=== PATIENT | female | born 1975 | race Two or more races ===

== ENCOUNTER 2025-01-12 19:55 | Emergency (ER) | payer MEDICAID, SELFPAY ==
[2025-01-12 19:58] VITALS: BMI 31.8
[2025-01-12 20:09] VITALS: BP 154/85; PULSE 92; RESP 18; TEMP 37.6; O2SAT 99
--- NOTE | 2025-01-12 21:04 | PD.EDURI ---
Upper Respiratory Inf. RME/HPI General Chief Complaint: Dental/Oral/Throat Stated Complaint: SORE THROAT, R EAR PAIN AND FEVER Time Seen by Provider: 01/12/25 20:29 Arrival date/time: 01/12/25 19:55 49F with history of DM presents to ED with 1 day of sore throat, cough, and fevers/chills. Some ear pain. Limitations: no limitations Related Data Home Medications ?Medication ?Instructions ?Recorded ?Confirmed atorvastatin 10 mg tablet 10 mg PO QPM 11/08/22 11/08/22 empagliflozin 25 mg tablet 25 mg PO QDAY 11/08/22 11/08/22 (Jardiance) metformin 1,000 mg tablet 1,000 mg PO BID 11/08/22 11/08/22 sitagliptin phosphate 100 mg 100 mg PO QDAY 11/08/22 11/08/22 tablet (Januvia) Allergies Allergy/AdvReac Type Severity Reaction Status Date / Time No Known Allergies Allergy Verified 01/12/25 20:02 Review of Systems Review of Systems Systems Reviewed: All systems reviewed, normal except as documented Constitutional Constitutional: Reports system reviewed and no additional complaints, except as documented, Reports as per HPI, Reports chills, Reports fever(s) and Denies headache(s) ENT Ears, Nose, Mouth, and Throat: Reports as per HPI, Denies disequilibrium, Reports otalgia, Denies headache(s) and Reports sore throat Cardiovascular Cardiovascular: Reports system reviewed and no additional complaints, except as documented, Denies chest pain and Denies dyspnea Respiratory Respiratory: Reports system reviewed and no additional complaints, except as documented, Denies cough and Denies dyspnea Gastrointestinal Gastrointestinal: Reports system reviewed and no additional complaints, except as documented, Denies abdominal pain, Denies nausea and Denies vomiting Neurologic Neurologic: Reports system reviewed and no additional complaints, except as documented, Denies confusion, Denies disequilibrium and Denies headache(s) Psychiatric Psychiatric: Denies confusion Past Medical History Past Medical History NEUROLOGIC: Negative Neurological Disorders or Seizures CARDIAC: Positive Cardiac Disorders and Hypercholesterolemia; Negative Congestive Heart Failure RESPIRATORY: Negative Chronic Obstructive Pulmonary Disease (COPD) GASTROINTESTINAL: Positive Gastrointestinal Disorders (Positive stool occult) and Obesity GENITOURINARY: Negative Genitourinary Disorders or Renal Disease REPRODUCTIVE: Positive Previous Pregnancies MUSCULOSKELETAL: Negative Musculoskeletal Disorders ENDOCRINE: Positive Endocrine Disorders and Diabetes Mellitus Type 2; Negative Diabetes Mellitus Type 1 HEMATOLOGIC: Negative Blood Disorders OTHER HISTORY: Negative Hospitalization, Falls, Blood Transfusions, Anesthesia Reactions or Cancer Surgical History SURGICAL: Positive Tubal Ligation Social History SMOKING STATUS: Never smoker ED Exam General Limitations: Present no limitations General appearance: Present alert, in no apparent distress and anxious Head Head exam: Present atraumatic Eye Eye exam: Present normal appearance, PERRL and EOMI ENT ENT exam: Present mucous membranes moist Expanded ENT Exam Throat exam: Present tonsillar erythema; Absent tonsillomegaly, tonsillar exudate, R peritonsillar mass, L peritonsillar mass or muffled voice Neck Neck exam: Present normal inspection, full ROM and trachea midline Chest Chest inspection: Present normal inspection and symmetric chest wall rise Respiratory Respiratory exam: Present normal lung sounds bilaterally Cardiovascular Cardiovascular exam: Present regular rate, normal rhythm and normal heart sounds Abdominal Exam Abdominal exam: Present soft and normal bowel sounds Extremities Exam Extremities exam: Present normal inspection and full ROM Back Exam Back exam: Present normal inspection and full ROM Neurological Exam Neurological exam: Present alert, oriented X3 and CN II-XII intact Psychiatric Psychiatric exam: Present normal affect and normal mood Skin Skin exam: Present warm, dry, intact and normal color Course Quality Measures none Orders Category Date Time Status Bedside COVID-19 Antigen Test NOW Care 01/12/25 20:05 Active Bedside Influenza A&B Antigen Test NOW Care 01/12/25 20:05 Completed Strep A Rapid Stat Lab 01/12/25 20:45 Completed Vital Signs Vital signs: Vital Signs Temperature 99.6 F 01/12/25 20:09 Pulse Rate 92 01/12/25 20:09 Respiratory Rate 18 01/12/25 20:09 Blood Pressure 154/85 H 01/12/25 20:09 Pulse Oximetry (%) 99 01/12/25 20:09 Oxygen Delivery Method Room Air 01/12/25 20:09 O2 at 99% on RA and WNLs Upper Respiratory Infection MDM Narrative MDM Narrative:: 49F with history of DM presents to ED with 1 day of sore throat, cough, and fevers/chills. Some ear pain. Physical exam reveals bilateral cerumen impaction. Red, but otherwise clear orophyarnx. Patient is afebrile, alert, but anxious. Speech normal. Normal WOB. Swabs neg. Likely viral URI. Patient data External records reviewed:: [facility] previous records Clinical information provided by:: patient Social determinants that could affect healthcare access:: none Patient has the following chronic illnesses:: DM How is presenting disease/condition affected by chronic disease/condition?: exacerbated by Evaluation data The following diagnostics were reviewed and interpreted by me:: lab results Lab and/or radiology exams considered but not ordered:: ordered Interpretation Summary: above Medications / Prescriptions Medications or Prescriptions considered but not ordered:: not ordered Medication administrations:: n/a Consultations Consultation(s) initiated? (list below): No Diagnosis Upper Respiratory Differential Diagnosis: upper respiratory infection, croup, otitis media, sinusitis, viral infection, bronchitis, influenza and pharyngitis Most likely diagnosis given after review of the tests above:: URI Admission Indicated Admission indicated?: not indicated Admission Request Was there a request for admission?: No Disposition Plan Disposition Plan: Discharge Discharge Attestation Discharge Attestation: The patient and all family members were given an opportunity to ask questions and understood the discharge instructions. Discharge instructions specifically effects, indications for sooner follow up or return to the emergency department, and the expected course of current diagnosis. Patient condition: Stable Discharge Plan Plan Patient Disposition: HOME (Self Care) Discharge Disposition comment: Stable Prescriptions/Referrals Prescriptions/Med Rec: No Action atorvastatin 10 mg Tablet 10 mg PO QPM metformin 1,000 mg Tablet 1,000 mg PO BID Januvia 100 mg Tablet 100 mg PO QDAY Jardiance 25 mg Tablet 25 mg PO QDAY Referrals: No Primary/Family,Physician [Primary Care Provider] - In 1 week Problem List Clinical Impression: URI (upper respiratory infection) Patient/Caregiver Discharge Instructions Education Materials: ED URI, Viral, No Abx (Adult) Additional Instructions: Please follow-up with PCP within 24-48 hours and return immediately if symptoms worsen. Ibuprofen/Tylenol can be used simultaneously for greater fever/pain control. Benadryl is good for cough, congestion, and sleep. Print Language: Slovenian Stand Alone Forms: Patient Portal Info Letter PA/TREASURY MANAGER Supervising Physician PA/TREASURY MANAGER Supervising Physician: Dr. Strange
[2025-01-12 22:34] LABS: Strep A Rapid Negative (Negative)
[2025-01-12 22:45] VITALS: RESP 12
== END 2025-01-12 22:46 | disposition home or self-care (01) ==
PROVIDERS: Physician Assistant; Emergency Provider Emergency Medicine
DX: J06.9 Acute upper respiratory infection, unspecified (principal)
CPT/HCPCS: 87400; 87651; 87811; 99283

== ENCOUNTER 2025-01-14 02:07 | Emergency (ER) | payer MEDICAID, SELFPAY ==
[2025-01-14 02:08] VITALS: BMI 31.8
[2025-01-14 02:22] VITALS: BP 132/82; PULSE 111; RESP 19; TEMP 37.1; O2SAT 97
[2025-01-14] MEDS: AMOXICILLIN/POT CLAV 875 TABLET 1 TAB PO (02:40)
[2025-01-14] MEDS: KETOROLAC INJ 60 MG/2 ML VIAL IM (02:43)
--- NOTE | 2025-01-14 02:58 | EDNOTE_ITS ---
ED Anxiety RME/HPI General Chief Complaint: Dental/Oral/Throat Stated Complaint: SORE THROAT X 3DAYS Time Seen by Provider: 01/14/25 02:30 Arrival date/time: 01/14/25 02:07 49F with history Limitations: no limitations Related Data Home Medications ?Medication ?Instructions ?Recorded ?Confirmed atorvastatin 10 mg tablet 10 mg PO QPM 11/08/22 empagliflozin 25 mg tablet 25 mg PO QDAY 11/08/2208/01 (Jardiance) metformin 1,000 mg tablet 1,000 mg PO BID 11/08/2208/01 sitagliptin phosphate 100 mg 100 mg PO QDAY 11/08/22 0 11/08/22 tablet (Januvia) Previous Rx's ?Medication ?Instructions ?Recorded amoxicillin 875 mg-potassium 1 tab PO BID 7 days #14 t abs 01/14/25 clavulanate 125 mg tablet Allergies Allergy/AdvReac Type Severity Reaction Status Date / Time No Known Allergies Allergy Verified 01/12/25 20:02 Review of Systems Review of Systems Systems Reviewed: All systems reviewed, normal except as documented Constitutional Constitutional: Reports system reviewed and no additional complaints, except as documented, Reports as per HPI, Reports chills, Reports fever(s) and Denies headache(s) ENT Ears, Nose, Mouth, and Throat: Reports as per HPI, Denies disequilibrium, Denies headache(s) and Reports sore throat Cardiovascular Cardiovascular: Reports system reviewed and no additional complaints, except as documented, Denies chest pain and Denies dyspnea Respiratory Respiratory: Reports system reviewed and no additional complaints, except as documented, Denies cough and Denies dyspnea Gastrointestinal Gastrointestinal: Reports system reviewed and no additional complaints, except as documented, Denies abdominal pain, Denies nausea and Denies vomiting Neurologic Neurologic: Reports system reviewed and no additional complaints, except as documented, Denies confusion, Denies disequilibrium and Denies headache(s) Psychiatric Psychiatric: Denies confusion Past Medical History Past Medical History NEUROLOGIC: Negative Neurological Disorders or Seizures CARDIAC: Positive Cardiac Disorders and Hypercholesterolemia; Negative Congestive Heart Failure RESPIRATORY: Negative Chronic Obstructive Pulmonary Disease (COPD) GASTROINTESTINAL: Positive Gastrointestinal Disorders and Obesity GENITOURINARY: Negative Genitourinary Disorders or Renal Disease REPRODUCTIVE: Positive Previous Pregnancies MUSCULOSKELETAL: Negative Musculoskeletal Disorders ENDOCRINE: Positive Endocrine Disorders and Diabetes Mellitus Type 2; Negative Diabetes Mellitus Type 1 HEMATOLOGIC: Negative Blood Disorders OTHER HISTORY: Negative Hospitalization, Falls, Blood Transfusions, Anesthesia Reactions or Cancer Surgical History SURGICAL: Positive Tubal Ligation Social History SMOKING STATUS: Never smoker ED Exam General Limitations: Present no limitations General appearance: Present alert and in no apparent distress Head Head exam: Present atraumatic Eye Eye exam: Present normal appearance, PERRL and EOMI ENT ENT exam: Present mucous membranes moist Expanded ENT Exam Throat exam: Present tonsillar erythema and muffled voice; Absent tonsillomegaly, tonsillar exudate, R peritonsillar mass or L peritonsillar mass Neck Neck exam: Present normal inspection, full ROM and trachea midline Chest Chest inspection: Present normal inspection and symmetric chest wall rise Respiratory Respiratory exam: Present normal lung sounds bilaterally Cardiovascular Cardiovascular exam: Present regular rate, normal rhythm and normal heart sounds Abdominal Exam Abdominal exam: Present soft and normal bowel sounds Extremities Exam Extremities exam: Present normal inspection and full ROM Back Exam Back exam: Present normal inspection and full ROM Neurological Exam Neurological exam: Present alert, oriented X3 and CN II-XII intact Psychiatric Psychiatric exam: Present normal affect and normal mood Skin Skin exam: Present warm, dry, intact and normal color Course Quality Measures none Orders Category Date Time Status Amoxicillin/Pot Clav 875 [Augmentin 875] Med 01/14/25 02:31 Discontinued 1 tab PO X1 ONE Ketorolac Inj [Toradol Inj] Med 01/14/25 02:38 Discontinued 60 mg IM X1 ONE Vital Signs Vital signs: Vital Signs Temperature 98.8 F 01/14/25 02:22 Pulse Rate 111 H 01/14/25 02:22 Respiratory Rate 19 01/14/25 02:22 Blood Pressure 132/82 H 01/14/25 02:22 Pulse Oximetry (%) 97 01/14/25 02:22 Oxygen Delivery Method Room Air 01/14/25 02:22 Anxiety MDM Narrative MDM Narrative: 49F with history of DM presents to ED with several days of 1 day of sore throat, cough, and fevers/chills. Patient was here several days ago for this with neg swabs. Patient states swelling is worse. Physical exam reveals red, but otherwise clear orophyarnx. Somewhat muffled voice. Patient is afebrile, alert, but anxious. Normal WOB. Given DM status and worsening symptoms, will treat in case of developing abscess. Patient data External records reviewed:: [facility] previous records Clinical information provided by:: patient Social determinants that could affect healthcare access:: none Patient has the following chronic illnesses:: DM How is presenting disease/condition affected by chronic disease/condition?: exacerbated by Evaluation data The following diagnostics were reviewed and interpreted by me:: other (specify) (none) Lab and/or radiology exams considered but not ordered:: not ordered Interpretation Summary: n/a Medications / Prescriptions Medications or Prescriptions considered but not ordered:: ordered Medication administrations:: Medication Administration History Discontinued Medications Amoxicillin/Clavulanate Potassium (Amoxicillin/Pot Clav 875 Tablet) 1 tab PO X1 ONE Stop: 01/14/25 02:32 Last Admin: 01/14/25 02:40 Dose: 1 tab Documented By: ADA Ketorolac Tromethamine (Ketorolac Inj 60 Mg/2 Ml Vial) 60 mg IM X1 ONE Stop: 01/14/25 02:39 Last Admin: 01/14/25 02:43 Dose: 60 mg Documented By: ADA Consultations Consultation(s) initiated? (list below): No Diagnosis Differential diagnosis anxiety: hyperventilation, panic disorder, acute anxiety and other (tonsillitis, URI) Most likely diagnosis given after review of the tests above:: tonsilliti Admission Indicated Admission indicated?: not indicated Admission Request Was there a request for admission?: No Disposition Plan Disposition Plan: Discharge Discharge Attestation Discharge Attestation: The patient and all family members were given an opportunity to ask questions and understood the discharge instructions. Discharge instructions specifically effects, indications for sooner follow up or return to the emergency department, and the expected course of current diagnosis. Patient condition: Stable Discharge Plan Plan Patient Disposition: HOME (Self Care) Discharge Disposition comment: Stable Prescriptions/Referrals Prescriptions/Med Rec: New amoxicillin-pot clavulanate 875-125 mg tablet 1 tab PO BID 7 Days Qty: 14 0RF No Action atorvastatin 10 mg Tablet 10 mg PO QPM metformin 1,000 mg Tablet 1,000 mg PO BID Januvia 100 mg Tablet 100 mg PO QDAY Jardiance 25 mg Tablet 25 mg PO QDAY Referrals: Temporary Provider,ED [Primary Care Provider] - In 1 week Problem List Clinical Impression: Tonsillitis Patient/Caregiver Discharge Instructions Education Materials: Tonsillitis in Adults Additional Instructions: Please follow-up with PCP within 24-48 hours and return immediately if symptoms worsen. Ibuprofen/Tylenol can be used simultaneously for greater fever/pain control. Print Language: Yi Stand Alone Forms: Patient Portal Info Letter PA/SLABBING MACHINE OPERATOR Supervising Physician PA/SLABBING MACHINE OPERATOR Supervising Physician: Dr. Strange
== END 2025-01-14 02:48 | disposition home or self-care (01) ==
LOC: SERX 03:14
PROVIDERS: Emergency Provider Emergency Medicine; PCP Family Medicine
DX: J03.90 Acute tonsillitis, unspecified (principal)
CPT/HCPCS: 96372; 99283; J1885; A9270